=== PATIENT | female | born 1940 | race Caucasian/White ===

== ENCOUNTER 2016-11-14 12:47 | Emergency (ER) | payer BC ==
[~2016-11-14 12:47] MED LIST: AMIT25 PO; AMIT50 PO; B12100T PO; BENTYL10 PO; BUM2 PO; C5; C5 PO; CALTRA600D PO; CELEXA20 PO; COREG6 PO; COZAAR100 MG PO; CYANO1000T PO; ENDOCET1 TA3 PO; FISH-EPA1000 MG PO; MCZ25 PO; METAMUCIL CAN7 OZ PO; MIRALAXPKT PO; MOBIC7.5 PO; MULTIPLE VIT PO; MULTIVITAMI1 PO; NEXIUM40 PO; PCET PO; PERCOCET1 TA4 PO; PERCOCET1 TA5 PO; POTASSIUM95 MG PO; PR25 PO; PREVEGEN; PRIN5 PO; PROTONIX PO; REOCYTE PLUS OR; S ADENOSYLMETHIONINE PO; SINGULAIR1 PO; TOPXL25 PO; VITAMIN C100 MG PO; VITAMIN D31000 UNIT PO; VITC500 PO; VITE PO; WELLSR150 PO; X5 PO; [UNRECOGNIZED DRUG - OTHER]; [UNRECOGNIZED DRUG - OTHER] PO
[2016-11-14 13:29] LABS: ASCORBIC ACID (UR NOT ORDER) 20 (NEG); BILIRUBIN, URINE NEGATIVE (NEG); ER URINALYSIS TAT 0 Hrs 16 Mins; KETONE, URINE NEGATIVE (NEG); LEUKOCYTE ESTERASE(NOT OR NEG (NEG); NITRITE (URINE) NEG (NEG); WBC (NOT ORDERED) (RFLEX) < 1 (0-5)
[2016-11-14 13:41] LABS: BASOPHILS 0.4 %; BASOPHILS ABSOLUTE 0.03 10/3/uL (0.0-0.16); EOSINOPHILS 1.3 %; EOSINOPHILS ABSOLUTE 0.11 10/3/uL (0.0-0.53); IMMATURE GRANULOCYTES 0.2 %; IMMATURE GRANULOCYTES ABSOLUTE 0.02 10/3/uL (0.0-0.11); LYMPHOCYTES 16.4 %; LYMPHOCYTES ABSOLUTE 1.35 10/3/uL (0.67-4.30); MEAN CORPUS HGB CONC 33.1 g/dL (32.0-36.0); MEAN CORPUSCULAR HEMOGLOB 30.4 pg (26.0-34.0); MEAN PLATELET VOLUME 9.5 fL (9.2-13.0); MONOCYTES 4.6 %; MONOCYTES ABSOLUTE 0.38 10/3/uL (0.21-1.20); NEUTROPHILS 77.1 %; NEUTROPHILS ABSOLUTE 6.34 10/3/uL (2.02-8.40); PLATELET COUNT 266 10/3/uL (150-400); RBC DISTRIBUTION WIDTH 13.2 % (12.0-16.0); RED CELL COUNT 4.24 10/6/uL (4.0-5.6)
[2016-11-14 13:42] LABS: ER CBC TAT 0 Hrs 09 Mins; HEMOGLOBIN 12.9 g/dL (12.0-16.0); MANUAL DIFF NO %; WHITE BLOOD CELLS 8.2 10/3/uL (4.5-10.5)
[2016-11-14 13:56] LABS: A/G RATIO 1.1 (0.7-1.9); ALBUMIN 3.9 G/DL (3.5-5.0); ALKALINE PHOSPHATASE 83 U/L (45-117); BUN (BLOOD UREA NITROGEN) 15 MG/DL (6-23); CALCIUM, SERUM 9.3 MG/DL (8.5-10.4); CHLORIDE, SERUM 99 MMOL/L (96-112); CO2 (CARBON DIOXIDE) 29 MMOL/L (24-34); CREATININE 0.83 MG/DL (0.55-1.02); GFR AFRICAN AMERICAN 81 ML/MIN (>=60); GFR NON AFRICAN AMERICAN 69 ML/MIN (>=60); GLOBULIN 3.4 G/DL (2.5-4.1); GLUCOSE, SERUM 120 MG/DL (60-99); POTASSIUM, SERUM 4.2 MMOL/L (3.5-5.3); SGOT(AST) 19 U/L (5-40); SGPT(ALT) 20 U/L (5-65); SODIUM, SERUM 134 MMOL/L (135-148); TOTAL BILIRUBIN 0.6 MG/DL (0-1.2); TOTAL PROTEIN 7.3 G/DL (6.0-8.5)
== END 2016-11-14 17:02 | disposition home or self-care (01) ==
LOC: ER 12:47
PROVIDERS: Hospitalist
DX: R10.9 Unspecified abdominal pain (principal); J44.9 Chronic obstructive pulmonary disease, unspecified; G47.30 Sleep apnea, unspecified; I10 Essential (primary) hypertension; K21.9 Gastro-esophageal reflux disease without esophagitis; F32.9 Major depressive disorder, single episode, unspecified; F41.9 Anxiety disorder, unspecified; D64.9 Anemia, unspecified; Z87.891 Personal history of nicotine dependence; Z88.1 Allergy status to other antibiotic agents; Z91.09 Other allergy status, other than to drugs and biological substances; Z91.048 Other nonmedicinal substance allergy status; Z79.899 Other long term (current) drug therapy
CPT/HCPCS: 74176; 80053; 81001; 83690; 85025; 96374; 96375; 96376; 99284; A9270-GY; J1170; J2405